=== PATIENT | female | born 1960 | race Caucasian/White ===

== ENCOUNTER → 2016-09-15 | Outpatient (CLI) | payer BC ==
[~2016-09-15] MED LIST: MAGNEVIST IV PRN
--- NOTE | 2016-09-15 11:32 | DIAGNOSTIC IMAGING REPORT ---
FLUOROSCOPIC GUIDED LEFT SHOULDER ARTHROGRAM FLUOROSCOPY TIME: 14 seconds HISTORY: Shoulder pain. LT SHOULDER PAIN PROCEDURE: After obtaining written informed consent, the patient was placed supine on the fluoroscopy table. A suitable site for needle insertion was marked using fluoroscopic guidance. The left shoulder was prepped and draped in the usual sterile fashion. 1% lidocaine was used for skin, subcutaneous and deep soft tissue anesthesia. Under intermittent fluoroscopic guidance, a 22 gauge 2.5 inch spinal needle was inserted into the left glenohumeral joint. A total of 14 cc of one-to-one mixture of dilute Magnevist (0.1 cc in 10 cc saline) and Optiray 300 were injected. The needle was then removed. There were no apparent complications. The patient was transported to for further imaging. IMPRESSION: Fluoroscopic-guided left shoulder arthrogram without immediate complication. Total injected volume was 14 cc. MR portion of the examination will be dictated separately. Electronically signed by: Nas Arthur M.D. 09/15/2016 11:30 AM Dictated Date/Time: 09/15/2016 11:30 AM
--- NOTE | 2016-09-15 11:42 | DIAGNOSTIC IMAGING REPORT ---
MRI left shoulder LEFT UPPER EXTREMITY JOINT W/ CLINICAL HISTORY: LT SHOULDER PAIN pain TECHNIQUE: Multiaxial MRI acquisition post MR arthrography COMPARISON STUDY: None FINDINGS: Signal characteristics of the osseous structures are unremarkable throughout. There is no significant bone marrow replacing process. There are findings of moderate supraspinatus tendinitis. There are moderate degenerative changes of the acromioclavicular joint with mild hypertrophic change creating minimal impingement. There is no significant rotator cuff tear, although a small partial tear is present of the inferior aspect of the supraspinatus. The infraspinatus and subscapularis tendons are intact. Biceps tendon is intact within the bicipital groove. There are mild degenerative changes of the articular services of the glenohumeral joint. Posterior glenoid labrum appears to be intact. There is a focal tear of the anterior superior aspect of the labrum. IMPRESSION: 1. Focal tear anterior superior glenoid labrum. 2. Tendinopathy of the supraspinatus tendon with a small partial thickness tear at its inferior surface. 3. No evidence for full-thickness rotator cuff tear. 4. Mild hypertrophic change of the acromioclavicular joint. Minimal impingement Electronically signed by: Nas Arthur M.D. 09/15/2016 11:41 AM Dictated Date/Time: 09/15/2016 11:30 AM
== END | disposition home or self-care (01) ==
LOC: C.MRIBC 10:03
PROVIDERS: ATTEND Family Medicine
DX: M75.32 Calcific tendinitis of left shoulder (principal); S43.492A Other sprain of left shoulder joint, initial encounter; X58.XXXA Exposure to other specified factors, initial encounter

== ENCOUNTER 2017-01-26 21:18 | Emergency (ER) | payer BC ==
[~2017-01-26] VITALS: Ht 167.6 cm; Wt 62.5 kg
[2017-01-26 21:24] VITALS: TEMP 37.1; Ht 167.6 cm; Wt 62.5 kg
[2017-01-26] MEDS ORDERED: DIPHTHERIA/TETANUS/PERTUSSIS 0.5 ML SYR/VIAL IM. ONE (21:45)
--- NOTE | 2017-01-26 21:47 | EMERGENCY ROOM VISIT NOTE ---
ED Visit Note First contact with patient: 21:28 Chief Complaint: Facial Laceration History of Present Illness: This patient is a 56-year-old female who presents to the Emergency Department via private vehicle for evaluation of their chin laceration. Patient sustained the laceration while opening a car door earlier today around 3 PM. They report a moderate amount of bleeding initially. They report no loss of consciousness. They deny any headache, visual disturbance, nausea, vomiting, or neck pain. She denies any pain. Patient's Tetanus status is not currently up-to-date. Medications: As noted below Allergies: None PMH: No pertinent SHx: Patient was at home with and 4 kids. ROS: All pertinent positive and negative review of systems are appropriately documented in the History of Present Illness. Physical Exam: VITAL SIGNS - Vital signs and nursing notes were reviewed. Stable. GENERAL -56-year-old female appearing her stated age. Communicates well with provider and answers questions appropriately. SKIN - There is a 2 cm laceration noted chin. The edges gape apart with traction. There is no active bleeding appreciated. No deep structures including vessels, musculature, or bony structures are appreciated. HEAD - Normocephalic. No Liu's Sign or Raccoon's Eyes. No depressed skull fractures palpable. EYES -Without subconjunctival hemorrhage. Palpebral conjunctiva pink and moist with no injection. NOSE - Midline and without cyanosis. No epistaxis or clear watery discharge noted. MOUTH/OROPHARYNX - Without perioral cyanosis. Tongue midline with equal elevation of palate bilaterally. No blood from the mouth. ED Course: Patient was seen and evaluated by myself. Patient had no focal neurological deficits. Patient's exam is otherwise unremarkable. Patient reports no headaches , visual disturbances, nausea, vomiting, or over-lethargy. Risks and benefits of performing primary wound closure versus no repair were discussed with the patient who verbalizes understanding. Verbal consent was obtained prior to performing the procedure. The wound was copiously irrigated with normal saline. The wound was closed using Dermabond. Patient tolerated the procedure well. No complications were met. Patient received their Adacel vaccination. Patient educated on worrisome symptoms for return visit to the Emergency Department. Patient discharged to home in good condition. In evaluation treatment this patient the following differential diagnoses entertained: Facial laceration, among others. Allergies Coded Allergies: No Known Allergies (Verified , 08/15/02) Vital Signs Date Time Temp Pulse Resp B/P (MAP) Pulse Ox O2 Delivery O2 Flow Rate FiO2 01/26/17 21:57 54 18 121/65 98 01/26/17 21:24 37.1 72 16 121/70 95 Room Air Medications Administered Medications (Trade) Dose Ordered Sig/Fahad Route Start Time Stop Time Status Last Admin Dose Admin Diphtheria/ Pertussis/Tetanus Vacc (Adacel Inj) 0.5 ml ONCE ONCE IM. 01/26/17 21:45 01/26/17 21:46 DC 01/26/17 21:47 0.5 ML Departure Information Impression Primary Impression: Laceration Dispostion Home / Self-Care Condition GOOD Referrals No Doctor, Assigned (PCP) Patient Instructions [facility] Additional Instructions Discharge Instructions: You have received dermabond on your chin. Please no submerging in water until 1 week has past. Look for signs of infection of the wound including: increased pain, swelling, foul discharge, streaking, or increased temperature. If any of these are noticed you should return to the Emergency Department for further assessment and treatment. As with any laceration you may have received nerve damage to the surrounding tissues. This damage may or may not be permanent. You should keep the area covered with sunscreen for the first 6 months to 1 year when at risk for exposure to help minimize scarring. You can also use scar reducing creams or Vitamin E oil to help minimize scarring. For pain control, you can use the following [id number] medicines (if >12 yo): - Regular strength (325mg/tab) Tylenol (acetaminophen) 2 tabs every 4-6 hours as needed. Do not exceed 12 tablets in a 24 hour period. Avoid taking more than 3 grams (3000 mg) of Tylenol per day. This includes any other sources of acetaminophen you may take on a regular basis. - Regular strength (200 mg/tab) Advil (ibuprofen) 1-2 tabs every 4-6 hours as needed. Do not exceed a dose of 3200 mg per day. Return to the emergency department if your symptoms worsen despite treatment course outlined above. Please return to the emergency department with any new/physical exams.
[2017-01-26 21:57] VITALS: BP 121/65; PULSE 54; O2SAT 98
== END 2017-01-26 21:58 | disposition home or self-care (01) ==
LOC: C.EDB 21:19 → C.EDD 21:58
DX: S01.81XA Laceration without foreign body of other part of head, initial encounter (principal); X58.XXXA Exposure to other specified factors, initial encounter; Z23 Encounter for immunization